=== PATIENT | male | born 1995 | race Caucasian/White ===

== ENCOUNTER 2017-10-14 12:38 | Emergency (ER) | payer OTHER ==
[~2017-10-14] VITALS: Ht 182.9 cm; Wt 98.0 kg
[2017-10-14] MEDS ORDERED: LAMOTRIGINE100 M3 PO (12:50)
[2017-10-14] MEDS ORDERED: CLARITIN 1010 MG/TAB PO (12:50)
[2017-10-14 13:44] LABS: EOS % 0.4 % (0.0-4.0); HEMATOCRIT 43.2 % (42.0-52.0); HEMOGLOBIN 14.9 g/dL (13.5-18.0); LYMPH# 0.9 (1.50-4.00); MEAN CELL VOLUME 87 fl (78-100); MEAN CORPUSCULAR HEMOGLOBIN 30 pg (27-31); MEAN CORPUSCULAR HGB CONC 35 g/dL (33-37); MEAN PLATELET VOLUME 9.9 fl (7.4-10.4); MONO # 0.4 (0.20-0.80); PLATELET COUNT 221 K/mm3 (130-400); RED BLOOD COUNT 4.97 M/mm3 (4.20-5.60); RED CELL DISTRIBUTION WIDTH 12.4 % (11.5-14.5); WHITE BLOOD COUNT 5.4 K/mm3 (4.8-10.8)
[2017-10-14 14:03] LABS: ALBUMIN 4.5 g/dL (3.5-5.0); BUN/CREATININE RATIO 21.4 (6.0-26.0); CALCIUM 9.5 mg/dL (8.4-10.2); POTASSIUM 4.3 mmol/L (3.6-5.0); TOTAL BILIRUBIN 0.4 mg/dL (0.2-1.3); TOTAL PROTEIN 8.5 g/dL (6.3-8.2)
[2017-10-14 14:06] LABS: CKMB ISOENZYME 3.8 ng/mL (0.6-3.5); TROPONIN-I < 0.03 ng/mL (0.00-0.06)
[2017-10-14 15:33] VITALS: BP 151/98
== END 2017-10-14 15:32 | disposition home or self-care (01) ==
LOC: ED 12:38
PROVIDERS: Physician Assistant
DX: I49.9 Cardiac arrhythmia, unspecified (principal); G40.909 Epilepsy, unspecified, not intractable, without status epilepticus; F84.5 Asperger's syndrome; F41.9 Anxiety disorder, unspecified; I10 Essential (primary) hypertension

== ENCOUNTER 2019-01-05 22:00 | Emergency (ER) | payer OTHER ==
[~2019-01-05] VITALS: Ht 182.9 cm; Wt 91.4 kg
[~2019-01-05 22:00] MED LIST: CLARITIN 1010 MG/TAB PO; LAMOTRIGINE100 M3 PO
[2019-01-05 22:55] LABS: EOS % 0.3 % (0.0-4.0); HEMATOCRIT 38.4 % (42.0-52.0); HEMOGLOBIN 12.8 g/dL (13.5-18.0); LYMPH# 1.4 (1.50-4.00); MEAN CELL VOLUME 90 fl (78-100); MEAN CORPUSCULAR HEMOGLOBIN 30 pg (27-31); MEAN CORPUSCULAR HGB CONC 33 g/dL (33-37); MEAN PLATELET VOLUME 9.6 fl (7.4-10.4); MONO # 0.9 (0.20-0.80); NEU # 6.5 (1.40-6.50); PLATELET COUNT 211 K/mm3 (130-400); RED BLOOD COUNT 4.27 M/mm3 (4.20-5.60); RED CELL DISTRIBUTION WIDTH 12.7 % (11.5-14.5); WHITE BLOOD COUNT 8.9 K/mm3 (4.8-10.8)
[2019-01-05 23:06] LABS: POTASSIUM 3.8 mmol/L (3.5-5.1)
[2019-01-05 23:07] LABS: CALCIUM 9.4 mg/dL (8.3-10.5)
[2019-01-05 23:30] VITALS: BP 124/78
[2019-01-05] MEDS ORDERED: METOPROLOL SUCC25 M1 PO (23:38)
[2019-01-05] MEDS ORDERED: BACTRIM DS TAB1 EACH PO (23:38)
== END 2019-01-05 23:30 | disposition home or self-care (01) ==
LOC: ED 22:00
PROVIDERS: Nurse Practitioner Family
DX: S91.312A Laceration without foreign body, left foot, initial encounter (principal); G40.909 Epilepsy, unspecified, not intractable, without status epilepticus; F41.9 Anxiety disorder, unspecified; W20.8XXA Other cause of strike by thrown, projected or falling object, initial encounter; Y92.531 Health care provider office as the place of occurrence of the external cause; Y99.0 Civilian activity done for income or pay

== ENCOUNTER 2019-08-20 18:48 | Emergency (ER) | payer OTHER, BC ==
[~2019-08-20] VITALS: Ht 185.4 cm; Wt 93.2 kg
[~2019-08-20 18:48] MED LIST changes: +BACTRIM DS TAB1 EACH PO; +METOPROLOL SUCC25 M1 PO
[2019-08-20] MEDS ORDERED: NORCO 325 MG-51 TA1 PO (20:50)
[2019-08-20 21:13] VITALS: BP 157/94
== END 2019-08-20 21:13 | disposition home or self-care (01) ==
LOC: ED 18:48
DX: S90.512A Abrasion, left ankle, initial encounter (principal); S90.511A Abrasion, right ankle, initial encounter; S50.812A Abrasion of left forearm, initial encounter; S50.811A Abrasion of right forearm, initial encounter; I10 Essential (primary) hypertension; F84.5 Asperger's syndrome; M41.9 Scoliosis, unspecified; V69.9XXA Occupant (driver) (passenger) of heavy transport vehicle injured in unspecified traffic accident, initial encounter; Y92.410 Unspecified street and highway as the place of occurrence of the external cause
CPT/HCPCS: J1885

== ENCOUNTER 2019-12-31 15:37 | Emergency (ER) | payer BC ==
[~2019-12-31] VITALS: Wt 95.5 kg
[~2019-12-31 15:37] MED LIST changes: +NORCO 325 MG-51 TA1 PO
[2019-12-31] MEDS ORDERED: ST. JOSEPH ASPI81 MG PO (15:49)
[2019-12-31 17:35] LABS: POTASSIUM 4.1 mmol/L (3.5-5.1)
[2019-12-31 17:36] LABS: CALCIUM 9.8 mg/dL (8.3-10.5); EOS % 0.1 % (0.0-4.0); HEMATOCRIT 46.4 % (42.0-52.0); HEMOGLOBIN 15.6 g/dL (13.5-18.0); LYMPH# 0.9 (1.50-4.00); MEAN CELL VOLUME 89 fl (78-100); MEAN CORPUSCULAR HEMOGLOBIN 30 pg (27-31); MEAN CORPUSCULAR HGB CONC 34 g/dL (33-37); MEAN PLATELET VOLUME 10.4 fl (7.4-10.4); MONO # 0.5 (0.20-0.80); NEU # 5.8 (1.40-6.50); PLATELET COUNT 240 K/mm3 (130-400); RED BLOOD COUNT 5.19 M/mm3 (4.20-5.60); RED CELL DISTRIBUTION WIDTH 12.7 % (11.5-14.5); WHITE BLOOD COUNT 7.2 K/mm3 (4.8-10.8)
[2019-12-31 18:18] VITALS: BP 113/76
== END 2019-12-31 18:19 | disposition home or self-care (01) ==
LOC: ED 15:37
PROVIDERS: Family Medicine
DX: I10 Essential (primary) hypertension (principal); F41.9 Anxiety disorder, unspecified; R00.0 Tachycardia, unspecified; Z79.82 Long term (current) use of aspirin

== ENCOUNTER 2020-06-25 22:57 | Emergency (ER) | payer SELFPAY ==
[~2020-06-25 22:57] MED LIST changes: +ASPIRIN E.C. 8181 MG PO; +HYDROXYZINE HCL25 M1 PO; -METOPROLOL SUCC25 M1 PO; +METOPROLOL SUCC50 M1 PO; +ZOLOFT 50MG50 MG PO
[2020-06-25 23:45] LABS: EOS % 0.7 % (0.0-4.0); HEMATOCRIT 43.8 % (42.0-52.0); HEMOGLOBIN 14.7 g/dL (13.5-18.0); LYMPH# 1.1 (1.50-4.00); MEAN CELL VOLUME 90 fl (78-100); MEAN CORPUSCULAR HEMOGLOBIN 30 pg (27-31); MEAN CORPUSCULAR HGB CONC 34 g/dL (33-37); MEAN PLATELET VOLUME 9.7 fl (7.4-10.4); MONO # 0.4 (0.20-0.80); PLATELET COUNT 219 K/mm3 (130-400); RED BLOOD COUNT 4.85 M/mm3 (4.20-5.60); RED CELL DISTRIBUTION WIDTH 12.5 % (11.5-14.5); WHITE BLOOD COUNT 5.5 K/mm3 (4.8-10.8)
[2020-06-25 23:57] LABS: ALBUMIN 4.6 g/dL (3.5-5.0); POTASSIUM 3.7 mmol/L (3.5-5.1); SODIUM 140 mmol/L (136-145)
[2020-06-25 23:58] LABS: CALCIUM 9.4 mg/dL (8.3-10.5)
[2020-06-26] LABS: GLUCOSE 93 mg/dL (75-110); TOTAL PROTEIN 7.4 g/dL (6.4-8.3)
[2020-06-26 00:01] LABS: CARBON DIOXIDE 25 mmol/L (22-29); TOTAL BILIRUBIN 0.6 mg/dL (0.2-1.2)
[2020-06-26 00:05] LABS: AST-SGOT 50 U/L (5-34)
[2020-06-26 00:06] LABS: ALCOHOL IN-HOUSE < 10 mg/dL (<10); ALT/SGPT 28 U/L (0-55)
[2020-06-26 00:07] LABS: ACETAMINOPHEN < 1 ug/mL
[2020-06-26 03:35] VITALS: BP 134/70
== END 2020-06-26 03:36 | disposition home or self-care (01) ==
LOC: ED 22:57
PROVIDERS: Nurse Practitioner Family
DX: F32.9 Major depressive disorder, single episode, unspecified (principal); F43.10 Post-traumatic stress disorder, unspecified; F43.0 Acute stress reaction; F41.9 Anxiety disorder, unspecified; I10 Essential (primary) hypertension; F17.200 Nicotine dependence, unspecified, uncomplicated; Z79.899 Other long term (current) drug therapy; Z79.82 Long term (current) use of aspirin

== ENCOUNTER → 2021-07-29 | Outpatient (CLI) | payer SELFPAY | LOC: RAD 08:30 | DX: S70.12XA Contusion of left thigh, initial encounter (principal) ==

== ENCOUNTER 2021-09-06 22:23 | Emergency (ER) | payer SELFPAY ==
[~2021-09-06] VITALS: Ht 182.9 cm; Wt 85.0 kg
[2021-09-06] MEDS ORDERED: DESYREL50 MG PO (23:46)
[2021-09-06] MEDS ORDERED: PAXIL10 M1 PO (23:46)
[2021-09-07 00:51] LABS: BASO # 0.01 K/mm3 (0.02-0.10); EOS # 0.02 K/mm3 (0.04-0.40); EOS % 0.4 % (0.0-4.0); HEMATOCRIT 44.8 % (42.0-52.0); HEMOGLOBIN 15.1 g/dL (13.5-18.0); LYMPH# 1.17 K/mm3 (1.50-4.00); MEAN CELL VOLUME 91 fl (78-100); MEAN CORPUSCULAR HEMOGLOBIN 31 pg (27-31); MEAN CORPUSCULAR HGB CONC 34 g/dL (33-37); MEAN PLATELET VOLUME 9.3 fl (7.4-10.4); MONO # 0.36 K/mm3 (0.20-0.80); NEU # 3.82 K/mm3 (1.40-6.50); PLATELET COUNT 258 K/mm3 (130-400); RED BLOOD COUNT 4.94 M/mm3 (4.20-5.60); RED CELL DISTRIBUTION WIDTH 12.2 % (11.5-14.5); WHITE BLOOD COUNT 5.4 K/mm3 (4.8-10.8)
[2021-09-07 00:55] LABS: ALBUMIN 4.8 g/dL (3.5-5.0); POTASSIUM 3.8 mmol/L (3.5-5.1); SODIUM 142 mmol/L (136-145)
[2021-09-07 00:58] LABS: GLUCOSE 83 mg/dL (75-110)
[2021-09-07 00:59] LABS: CARBON DIOXIDE 27 mmol/L (22-29)
[2021-09-07 01:00] LABS: TOTAL BILIRUBIN 0.6 mg/dL (0.2-1.2)
[2021-09-07 01:01] LABS: ALCOHOL IN-HOUSE 112 mg/dL (<10)
[2021-09-07 01:03] LABS: AST-SGOT 22 U/L (5-34)
[2021-09-07 01:05] LABS: ACETAMINOPHEN < 1 ug/mL; ALT/SGPT 25 U/L (0-55)
[2021-09-07 01:46] LABS: URINE APPEARANCE CLEAR; URINE BILIRUBIN NEGATIVE (NEGATIVE); URINE BLOOD NEGATIVE (NEGATIVE); URINE COLOR LT YELLOW; URINE GLUCOSE NEGATIVE (NEGATIVE); URINE KETONE NEGATIVE (NEGATIVE); URINE LEUKOCYTE ESTERASE NEGATIVE (NEGATIVE); URINE NITRATE NEGATIVE (NEGATIVE); URINE PROTEIN(semi-quant) NEGATIVE (NEGATIVE); URINE UROBILINOGEN NORMAL (NORMAL); URINE WBC 0-1 /hpf (0-3)
[2021-09-07 05:24] VITALS: BP 135/89
== END 2021-09-07 05:24 | disposition home or self-care (01) ==
LOC: ED 22:23
PROVIDERS: Family Medicine
DX: F41.9 Anxiety disorder, unspecified (principal); F10.129 Alcohol abuse with intoxication, unspecified; F43.10 Post-traumatic stress disorder, unspecified; F43.9 Reaction to severe stress, unspecified

== ENCOUNTER 2021-12-01 03:30 | Emergency (ER) | payer SELFPAY ==
[~2021-12-01] VITALS: Ht 182.9 cm; Wt 84.8 kg
[~2021-12-01 03:30] MED LIST changes: +DESYREL50 MG PO; +PAXIL10 M1 PO
[2021-12-01 03:35] VITALS: BP 138/100
[2021-12-01] MEDS ORDERED: CYCLOBENZAPRINE10 M1 PO (03:47)
== END 2021-12-01 05:18 | disposition home or self-care (01) ==
LOC: ED 03:30
DX: F43.9 Reaction to severe stress, unspecified (principal); F41.9 Anxiety disorder, unspecified; F32.A Depression, unspecified; G47.00 Insomnia, unspecified; Z28.310 Unvaccinated for COVID-19; Z79.899 Other long term (current) drug therapy

== ENCOUNTER 2021-12-11 01:45 | Emergency (ER) | payer SELFPAY ==
[~2021-12-11 01:45] MED LIST changes: +CYCLOBENZAPRINE10 M1 PO
[2021-12-11] MEDS ORDERED: PROZAC20 M1 (01:59)
[2021-12-11 02:10] VITALS: BP 133/78
[2021-12-11 02:11] LABS: BASO # 0.02 K/mm3 (0.02-0.10); EOS # 0.07 K/mm3 (0.04-0.40); HEMATOCRIT 41.2 % (42.0-52.0); HEMOGLOBIN 14.2 g/dL (13.5-18.0); LYMPH# 1.54 K/mm3 (1.50-4.00); MEAN CELL VOLUME 88 fl (78-100); MEAN CORPUSCULAR HEMOGLOBIN 31 pg (27-31); MEAN CORPUSCULAR HGB CONC 35 g/dL (33-37); MEAN PLATELET VOLUME 9.7 fl (7.4-10.4); MONO # 0.41 K/mm3 (0.20-0.80); NEU # 4.67 K/mm3 (1.40-6.50); PLATELET COUNT 225 K/mm3 (130-400); RED BLOOD COUNT 4.66 M/mm3 (4.20-5.60); WHITE BLOOD COUNT 6.7 K/mm3 (4.8-10.8)
[2021-12-11 02:20] LABS: ALBUMIN 4.7 g/dL (3.5-5.0); POTASSIUM 3.8 mmol/L (3.5-5.1)
[2021-12-11 02:21] LABS: CALCIUM 9.8 mg/dL (8.3-10.5)
[2021-12-11 02:22] LABS: SODIUM 140 mmol/L (136-145)
[2021-12-11 02:23] LABS: CARBON DIOXIDE 25 mmol/L (22-29); TOTAL PROTEIN 7.6 g/dL (6.4-8.3)
[2021-12-11 02:25] LABS: GLUCOSE 97 mg/dL (75-110)
[2021-12-11 02:27] LABS: TOTAL BILIRUBIN 0.5 mg/dL (0.2-1.2)
[2021-12-11 02:29] LABS: ALT/SGPT 20 U/L (0-55)
[2021-12-11 02:30] LABS: AST-SGOT 17 U/L (5-34)
[2021-12-11 02:31] LABS: ACETAMINOPHEN < 1 ug/mL; ALCOHOL IN-HOUSE < 10 mg/dL (<10)
== END 2021-12-11 08:59 | disposition home or self-care (01) ==
LOC: ED 01:45
PROVIDERS: Physician Assistant
DX: R45.851 Suicidal ideations (principal); Z28.310 Unvaccinated for COVID-19

== ENCOUNTER 2023-09-05 05:34 | Emergency (ER) | payer OTHER ==
[~2023-09-05 05:34] MED LIST changes: +FLONASE ALLERG9.9 ML NS; +LAMICTAL200 M1 PO; +PROZAC20 M1
[2023-09-05 06:30] LABS: BASO # 0.02 K/mm3 (0.02-0.10); EOS # 0.06 K/mm3 (0.04-0.40); EOS % 0.8 % (0.0-4.0); HEMATOCRIT 44.1 % (42.0-52.0); LYMPH# 0.92 K/mm3 (1.50-4.00); MEAN CELL VOLUME 92 fl (78-100); MEAN CORPUSCULAR HEMOGLOBIN 31 pg (27-31); MEAN CORPUSCULAR HGB CONC 34 g/dL (33-37); MEAN PLATELET VOLUME 9.5 fl (7.4-10.4); MONO # 0.57 K/mm3 (0.20-0.80); NEU # 5.88 K/mm3 (1.40-6.50); PLATELET COUNT 199 K/mm3 (130-400); RED BLOOD COUNT 4.81 M/mm3 (4.20-5.60); RED CELL DISTRIBUTION WIDTH 12.1 % (11.5-14.5); WHITE BLOOD COUNT 7.5 K/mm3 (4.8-10.8)
[2023-09-05 09:02] VITALS: BP 129/93
== END 2023-09-05 09:04 | disposition home or self-care (01) ==
LOC: ED 05:34
PROVIDERS: Family Medicine
DX: J06.9 Acute upper respiratory infection, unspecified (principal)